=== PATIENT | male | born 1955 | race American Indian/Alaskan Native ===

== ENCOUNTER 2018-11-03 08:33 | Emergency (ER) | payer MEDICARE, OTHER ==
[2018-11-03 08:42] VITALS: BP 113/68
--- NOTE | 2018-11-03 09:36 | Emergency Department Report ---
- General Chief complaint: Animal Bite Stated complaint: POSS INSECT BITE Time Seen by Provider: 11/03/18 09:11 Source: patient Mode of arrival: Ambulatory Limitations: No Limitations - History of Present Illness MD complaint: insect bite/sting (to palm of left hand yesterday and now area swollen red and itchiing. no discharge. no bleeding. ) Severity: mild Quality: dull, constant Consistency: constant Improves with: none Worsens with: palpation, movement Context: none Treatments Prior to Arrival: none - Related Data Previous Rx's Medication Instructions Recorded Last Taken Type cephALEXin [Keflex] 500 mg PO Q6HR #40 capsule 11/03/18 Unknown Rx hydrOXYzine HCL [Atarax] 25 mg PO Q6HR PRN #20 tablet 11/03/18 Unknown Rx predniSONE [Deltasone] 50 mg PO QDAY #5 tab 11/03/18 Unknown Rx Allergies Allergy/AdvReac Type Severity Reaction Status Date / Time No Known Allergies Allergy Verified 11/03/18 08:38 Abscess Boil HPI - HPI Chief Complaint: Animal Bite Stated Complaint: POSS INSECT BITE Time Seen by Provider: 11/03/18 09:11 Home Medications: Previous Rx's Medication Instructions Recorded Last Taken Type cephALEXin [Keflex] 500 mg PO Q6HR #40 capsule 11/03/18 Unknown Rx hydrOXYzine HCL [Atarax] 25 mg PO Q6HR PRN #20 tablet 11/03/18 Unknown Rx predniSONE [Deltasone] 50 mg PO QDAY #5 tab 11/03/18 Unknown Rx Allergies/Adverse Reactions: Allergies Allergy/AdvReac Type Severity Reaction Status Date / Time No Known Allergies Allergy Verified 11/03/18 08:38 ED Review of Systems ROS: Stated complaint: POSS INSECT BITE Other details as noted in HPI Comment: All other systems reviewed and negative ED Past Medical Hx - Past Medical History Previous Medical History?: No - Surgical History Past Surgical History?: No - Social History Smoking Status: Never Smoker Substance Use Type: None - Medications Home Medications: Home Medications Medication Instructions Recorded Confirmed Last Taken Type cephALEXin [Keflex] 500 mg PO Q6HR #40 capsule 11/03/18 Unknown Rx hydrOXYzine HCL [Atarax] 25 mg PO Q6HR PRN #20 tablet 11/03/18 Unknown Rx predniSONE [Deltasone] 50 mg PO QDAY #5 tab 11/03/18 Unknown Rx ED Physical Exam - General Limitations: No Limitations General appearance: alert, in no apparent distress - Head Head exam: Present: atraumatic, normocephalic - Eye Eye exam: Present: normal appearance - ENT ENT exam: Present: mucous membranes moist - Neck Neck exam: Present: normal inspection - Respiratory Respiratory exam: Present: normal lung sounds bilaterally. Absent: respiratory distress - Cardiovascular Cardiovascular Exam: Present: regular rate, normal rhythm. Absent: systolic murmur, diastolic murmur, rubs, gallop - GI/Abdominal GI/Abdominal exam: Present: soft, normal bowel sounds - Rectal Rectal exam: Present: deferred - Extremities Exam Extremities exam: Present: normal inspection, tenderness - Expanded Upper Extremity Exam Left Hand Wrist exam: Present: tenderness, swelling, erythema. Absent: deformity, crepidus Hand L/R Front: 1 - Positive: other (sting site with redness and tenderness. no discharge) - Back Exam Back exam: Present: normal inspection - Neurological Exam Neurological exam: Present: alert, oriented X3, CN II-XII intact - Psychiatric Psychiatric exam: Present: normal affect, normal mood - Skin Skin exam: Present: warm, dry, intact, normal color. Absent: rash ED Course Vital Signs 11/03/18 08:39 Temperature 98.4 F Pulse Rate 61 Respiratory 16 Rate Blood Pressure 113/68 Blood Pressure 113/68 [Left] O2 Sat by Pulse 99 Oximetry Critical care attestation.: If time is entered above; I have spent that time in minutes in the direct care of this critically ill patient, excluding procedure time. ED Disposition Clinical Impression: Cellulitis of hand Disposition: DC- TO HOME OR SELFCARE Is pt being admited?: No Does the pt Need Aspirin: No Condition: Stable Instructions: Cellulitis (ED) Prescriptions: hydrOXYzine HCL [Atarax] 25 mg PO Q6HR PRN #20 tablet PRN Reason: Itching predniSONE [Deltasone] 50 mg PO QDAY #5 tab cephALEXin [Keflex] 500 mg PO Q6HR #40 capsule [facility] DION[facility] [Primary Care Provider] - 3-5 Days
== END 2018-11-03 09:49 | disposition home or self-care (01) ==
LOC: ED 08:33
DX: L03.114 Cellulitis of left upper limb (principal); Z79.899 Other long term (current) drug therapy
CPT/HCPCS: 99282

== ENCOUNTER 2020-12-24 06:30 | Day surgery (SDC) | payer MEDICARE, OTHER ==
[2020-12-24] MEDS ORDERED: SODIUM CHLORIDE 0.9% 500 ML 500 ML IV SCH (07:00)
[2020-12-24] MEDS ORDERED: HEPARIN/NS 5000 UNIT/500ML 1,000 ML IR ONE (07:38)
[2020-12-24] MEDS ORDERED: ASPIRIN EC 325 MG TAB PO SCH (08:00)
[2020-12-24] MEDS: fentaNYL 100 MCG/2 ML INJ ONE ×2 (08:33→08:48)
[2020-12-24] MEDS: MIDAZOLAM 2 MG/2 ML INJ ONE ×2 (08:33→08:48)
[2020-12-24] MEDS: LIDOCAINE (2%) 20 MG/1 ML VIAL 20 ML MDV INFILTRATI ONE ×2 (08:34→08:54)
[2020-12-24] MEDS: VERAPAMIL 5 MG/2 ML INJ ONE ×2 (08:35→08:56)
[2020-12-24] MEDS: HEPARIN 10,000 UNITS/10 ML VIAL ONE ×2 (08:35→08:53)
--- NOTE | 2020-12-24 09:19 | Short Stay Summary ---
Short Stay Documentation Date of service: 12/24/20 - History Principal diagnosis: Chest Pain H&P: obtained from office Past Medical History: arrhythmia (sinus bradycardia), other (glaucoma) Past Surgical History: no valve replacement, no CABG, no PTCA Social history: no smoking, no alcohol abuse - Allergies and Medications Current Medications: Allergies No Known Allergies Allergy (Verified 11/03/18 08:38) Home Medications Medication Instructions Recorded Confirmed Last Taken Type Brimonidine Tartrate [Brimonidine 1 drop INTRAOCULA BID 12/24/20 12/24/20 12/23/20 History Tartrate 0.2%] 1 drop Timolol 0.5% [Timoptic] 1 drop INTRAOCULA BID 12/24/20 12/24/20 12/23/20 History 1 drop Active Medications Aspirin (Aspirin Ec 325 Mg Tab) 325 mg PO ONCE@0800 [place] Stop: 12/24/20 16:00 Last Admin: 12/24/20 07:59 Dose: 325 mg Documented by: Sodium Chloride (Nacl 0.9% 500 Ml) 500 mls @ 50 mls/hr IV DIRECT [place] Stop: 12/24/20 16:59 Last Admin: 12/24/20 08:10 Dose: 50 mls/hr Documented by: - Physical exam General appearance: no acute distress Integumentary: no rash, other (R radial site - clean/dry/intact, no bleeding or hematoma) HEENT: Atraumatic, EOMI, Mucous membr. moist/pink Lungs: Clear to auscultation Heart: Normal S1, Normal S2, No murmurs Gastrointestinal: normal Extremities: pulses intact, No edema, normal temperature Neurological: Normal speech, Normal tone, Sensation intact - Brief post op/procedure progress note Date of procedure: 12/24/20 Pre-op diagnosis: Chest Pain Post-op diagnosis: same Surgeon: ALF MCKINLEY Estimated blood loss: none Pathology: none Condition: stable - Hospital course Hospital course: Pt presented for elective LHC, which revealed only minimal to mild irregularities of the coronary arteries, normal LV systolic function. See cath report for detailed findings. Pt tolerated procedure well. Currently stable with no complaints. Follow-up with Dr. Brooks on 12/29/2020 @ 10am ([phone]). - Disposition Condition at discharge: Good Disposition: 01 HOME / SELF CARE / HOMELESS Short Stay Discharge Plan Activity: advance as tolerated Diet: low fat, low cholesterol Wound: per your surgeon's advice Follow up with: SAVANNAH HUNT MD [Primary Care Provider] - 7 Days JOANA BROOKS MD [Staff Physician] - 12/29/20 10:00 am (Follow-up with Dr. Brooks on 12/29/2020 @ 10am ([phone]). ) Forms: [employer] PCI D/C Instructions
[2020-12-24] MEDS ORDERED: HYDROcodone/ACETAMINOPHEN 5-325 MG TAB PO PRN (09:37)
--- NOTE | 2020-12-24 09:52 | Cardiac Catherization Report ---
DATE OF SERVICE: 12/24/2020 INDICATIONS: The patient is a 65-year-old -Turk[place] gentleman, was evaluated in the office for atypical chest pains and was noted to have abnormal stress EKG with ST depressions. Hence, the patient is scheduled for cardiac catheterization for definitive diagnosis and treatment. The patient is aware of the procedure, potential complications, and alternatives of therapy available. DESCRIPTION OF PROCEDURE: The patient was brought to the catheterization laboratory and was evaluated for moderate sedation and was felt to be an appropriate candidate for moderate sedation and received IV Versed and fentanyl. Subsequently, right wrist area was prepared with Betadine solution and sterile drapes were applied. Local anesthesia was achieved using 2% Xylocaine. Right radial artery puncture was made using 21-gauge arterial puncture needle. Subsequently, 5-Yoruba slender sheath was introduced. A 5-Yoruba multipurpose catheter was used to obtain the left ventriculogram done in CARDONA projection using hand injection followed by angiograms of the left coronary artery in multiple views and also the angiograms of the right coronary artery in TELUGU and CARDONA projection. At the end of the procedure, catheter and sheath were removed. Good hemostasis was achieved with application of radial band. The patient received 5 mg of intra-arterial verapamil and 3000 units of intravenous heparin after insertion of the radial sheath. The patient was monitored throughout the procedure with pulse oximetry, EKG and hemodynamic monitoring. The patient tolerated the procedure well. No untoward complications were noted. At the end of the procedure, the patient is breathing normally, communicating normally with no focal deficits. Following findings were noted. HEMODYNAMICS: 1. Opening aortic pressure 125/70. Left ventricular pressure 125/20. No gradient across the aortic valve. Estimated ejection fraction 65%. 2. Left ventriculogram done in CARDONA projection showed normal sized left ventricle with normal contractility. End-diastolic and end-systolic volumes are normal. Mitral regurgitation could not be evaluated because of limited amount of dye injected. Ejection fraction was estimated to be 65%. 3. Right coronary artery is a dominant vessel, it arises normally from right coronary cusp. Only minimal irregularities noted. 4. Left coronary artery arises normally from left coronary cusp. Left main without significant disease. LAD shows mild irregularities throughout with 20% lesion at the ostium. There may be mild bridging of the LAD in the mid part. Diagonal branches show mild irregularities. Circumflex artery and its branches show only very mild irregularities. FINAL IMPRESSION: 1. Normal-sized left ventricle with normal contractility. 2. Minimal to mild irregularities noted in the coronary arteries. At this time, etiology of his atypical chest pain is not clear and a stress EKG may be false positive. Considering the above findings, the patient will be continued on risk factor modification. The patient was transferred to the room in stable condition. Findings were explained to the patient and he understands. The patient's moderate sedation monitoring started at 8:48 a.m. and monitoring ended at 9:03 a.m. TID: [id number] RECEIPT: [id number] MARCO/LOGAN JERRY
[2020-12-24] MEDS ORDERED: traMADol 50 MG TAB PO PRN (10:00)
[2020-12-24 12:48] VITALS: BP 108/60
--- NOTE | 2020-12-28 14:29 | Electrocardiograph Report ---
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
== END 2020-12-24 13:30 | disposition home or self-care (01) ==
LOC: CATHLABREC 06:30
PROVIDERS: ATTEND Internal Medicine
DX: R94.31 Abnormal electrocardiogram [ECG] [EKG] (principal); R94.39 Abnormal result of other cardiovascular function study; I25.10 Atherosclerotic heart disease of native coronary artery without angina pectoris; E78.00 Pure hypercholesterolemia, unspecified; Z79.899 Other long term (current) drug therapy; Z98.890 Other specified postprocedural states; Z82.49 Family history of ischemic heart disease and other diseases of the circulatory system; Z83.3 Family history of diabetes mellitus; Z87.891 Personal history of nicotine dependence
CPT/HCPCS: 93005; 93458; 99156; C1894; J1644; J2250; J3010; J7040; Q9967